=== PATIENT | female | born 1970 | race Caucasian/White ===

== ENCOUNTER 2025-10-15 03:40 | Day surgery (SDC) | payer BC, SELFPAY ==
[2025-09-22 11:30] VITALS: BMI 23.4
--- OUTSIDE RECORDS SUMMARY | 2025-10-15 03:43 | XMS_ITS | Clinical Summary ---
Author Organization [facility] Address Formerly [facility] [place] [address] Care Team Providers Care Fittings Tightener Name Role Phone Rony Fried JOANNA Primary Care Provider + Allergies Active Allergy Reactions Criticality Noted Date Comments Penicillins Hives 08/18/2025 Medications rosuvastatin (CRESTOR) 20 MG tablet Take 1 tablet (20 mg total) by mouth nightly at bedtime. Active Coenzyme Q10 (CO Q 10) 10 MG Cap Active Active Problems Problem Noted Date Diagnosed Date Hemochromatosis 08/05/2025 Encounters Date Type Department Care Team Description 10/06/2025 8:04 AM GLASS INSPECTOR - 10/06/2025 11:59 PM [facility] Hospital Encounter [facility] [place] [address] [address] Lai Beauchamp MD Therapeutic Phlebotomy Discharge Disposition: Home or Self Care (Routine Discharge) 10/06/2025 8:03 AM [facility] Hospital Encounter [facility] [place] [place] [address] Lai Beauchamp MD Discharge Disposition: Home or Self Care (Routine Discharge) 10/06/2025 Orders Only [facility] [place] [address] [address] Lai Beauchamp MD 10/06/2025 Travel 10/06/2025 Orders Only [facility] [place] [address] [address] Lai Beauchamp MD 09/22/2025 7:58 AM GLASS INSPECTOR - 09/22/2025 11:59 PM GLASS INSPECTOR Hospital Encounter [facility] [address] [place] [address] Lai Beauchamp MD Therapeutic Phlebotomy Discharge Disposition: Home or Self Care (Routine Discharge) 09/22/2025 7:57 AM GLASS INSPECTOR Hospital Encounter [facility] [address] [place] [address] Lai Beauchamp MD Discharge Disposition: Home or Self Care (Routine Discharge) 09/22/2025 Travel 09/15/2025 8:04 AM GLASS INSPECTOR - 09/15/2025 11:59 PM GLASS INSPECTOR Hospital Encounter [facility] [address] [place] [address] Lai Beauchamp MD Therapeutic Phlebotomy Discharge Disposition: Home or Self Care (Routine Discharge) 09/15/2025 8:03 AM GLASS INSPECTOR Hospital Encounter [facility] [address] [place] [address] Lai Beauchamp MD Discharge Disposition: Home or Self Care (Routine Discharge) 09/15/2025 Travel 09/14/2025 Orders Only [facility] [place] [address] Lai Beauchamp MD 09/08/2025 8:00 AM GLASS INSPECTOR - 09/08/2025 11:59 PM GLASS INSPECTOR Hospital Encounter [facility] [address] [place] [address] Lai Beauchamp MD Discharge Disposition: Home or Self Care (Routine Discharge) 09/08/2025 7:59 AM GLASS INSPECTOR Hospital Encounter [facility] [address] [place] [address] Lai Beauchamp MD Discharge Disposition: Home or Self Care (Routine Discharge) 09/08/2025 Orders Only [facility] [address] [place] [address] Lai Beauchamp MD 09/08/2025 Travel 08/25/2025 8:14 AM CDT - 08/25/2025 11:59 PM CDT Hospital Encounter [facility] [place] [address] Lai Beauchamp MD Therapeutic Phlebotomy Discharge Disposition: Home or Self Care (Routine Discharge) 08/25/2025 8:13 AM CDT Hospital Encounter [facility] [place] [address] Lai Beauchamp MD Discharge Disposition: Home or Self Care (Routine Discharge) 08/25/2025 Travel 08/18/2025 9:05 AM CDT - 08/18/2025 11:59 PM CDT Hospital Encounter [facility] [place] [address] Lai Beauchamp MD Discharge Disposition: Home or Self Care (Routine Discharge) 08/18/2025 8:30 AM CDT - 08/18/2025 9:04 AM CDT Hospital Encounter [facility] [place] [address] Lai Beauchamp MD Therapeutic Phlebotomy Discharge Disposition: Home or Self Care (Routine Discharge) 08/18/2025 8:20 AM CDT - 08/18/2025 8:29 AM CDT Hospital Encounter [facility] [place] [address] Lai Beauchamp MD Discharge Disposition: Home or Self Care (Routine Discharge) 08/18/2025 Orders Only [facility] [place] [address] [address] Lai Beauchamp MD 08/18/2025 Orders Only [facility] [place] [place] [address] Lai Beauchamp MD 08/18/2025 Travel 08/18/2025 Orders Only [facility] [place] [place] [address] Lai Beauchamp MD 08/05/2025 10:15 AM CDT - 08/05/2025 11:59 PM CDT Hospital Encounter [facility] [place] [address] Lai Beauchamp MD Discharge Disposition: Home or Self Care (Routine Discharge) 08/05/2025 10:13 AM CDT - 08/05/2025 10:14 AM CDT Hospital Encounter [facility] [address] [facility] [address] Lai Beauchamp MD Discharge Disposition: Home or Self Care (Routine Discharge) 08/05/2025 Orders Only [facility] [place] [address] Lai Beauchamp MD 08/05/2025 Travel 07/18/2025 9:55 AM CDT - 07/18/2025 11:59 PM CDT Hospital Encounter [facility] [address] Lai Beauchamp MD Discharge Disposition: Home or Self Care (Routine Discharge) 07/18/2025 Orders Only [facility] [place] [address] Lai Beauchamp MD 07/18/2025 Travel from Last 3 Months Social History Tobacco Use Types Packs/Day Years Used Date Smoking Tobacco: Never Assessed Comments No Sex and Gender Information Value Date Recorded Sex Assigned at Female 01/14/2025 12:15 PM CDT Legal Sex Female 2:22 PM CDT Gender Identity Not on file Sexual Orientation Not on file Last Filed Vital Signs Vital Sign Reading Time Taken Comments Blood Pressure 135/70 10/06/2025 8:44 AM GLASS INSPECTOR Pulse 88 10/06/2025 8:44 AM GLASS INSPECTOR Temperature 36.7 C (98 F) 10/06/2025 8:44 AM GLASS INSPECTOR Respiratory Rate 16 10/06/2025 8:44 AM GLASS INSPECTOR Oxygen Saturation 99% 10/06/2025 8:44 AM GLASS INSPECTOR Inhaled Oxygen Concentration - - Weight 65.3 kg (143 lb 15.4 oz) 10/06/2025 8:44 AM GLASS INSPECTOR Height - - Body Mass Index - - Plan of Treatment Health Maintenance Due Date Last Done Comments Cervical Cancer Screening Pa p Smear (Age 30 to 64) Every 3 Years 1971 Colorectal Cancer Screening Colonoscopy (10 Years) 1971 Annual Physical 1974 Hepatitis B Vaccines (1 of 3 - 19+ 3-dose series) 1990 Cervical Cancer Screening Pa p with HPV Testing (Age 30 to 64) Every 5 Years 2001 Cervical Cancer Screening wi th HPV 2001 Pneumococcal Vaccine: 50+ Years (1 of 1 - PCV) 2021 Zoster Vaccines (1 of 2) 2021 DTaP, Tdap and Td Vaccines ( 2 - Td or Tdap) 07/27/2021 07/27/2011 COVID-19 Vaccine (1 - 2024-2 6 season) 2025 Influenza Adult (#1) 2025 Mammogram Screening 01/19/2027 01/19/2025, 09/24/2020, 12/31/2014 Hepatitis C Completed 08/05/2025 Hepatitis A Vaccines Aged Out No long er eligible based on patient's age to complete this topic Meningococcal B Vaccine Aged Out No l onger eligible based on patient's age to complete this topic Meningococcal Vaccine Aged Out No nilay alex eligible based on patient's age to complete this topic RSV Immunizations Under 20 Months Aged Out No longer eligible b ased on patient's age to complete this topic Procedures Procedure Name Priority Date/Time Associated Diagnosis Comments FERRITIN Routine 10/06/2025 8:07 AM GLASS INSPECTOR Hemochromatosis IRON SAT PANEL (IRON,IBC,%SAT) Routine 10/06/2025 8:07 AM GLASS INSPECTOR Hereditary hemochromatosis HC CBC AUTO W/AUTO DIFF Routine 10/06/2025 8:07 AM GLASS INSPECTOR Hereditary hemochromatosis HC HEMATOCRIT Routine 09/22/2025 8:02 AM GLASS INSPECTOR Hemochromatosis HC HEMATOCRIT Routine 09/15/2025 8:08 AM GLASS INSPECTOR Hemochromatosis IRON SAT PANEL (IRON,IBC,%SAT) Routine 09/08/2025 8:09 AM GLASS INSPECTOR Hemochromatosis FERRITIN Routine 09/08/2025 8:09 AM GLASS INSPECTOR Hemochromatosis CBC W/DIFF AUTOMATED Routine 09/08/2025 8:09 AM GLASS INSPECTOR Hemochromatosis HEMATOCRIT Routine 09/08/2025 8:09 AM GLASS INSPECTOR Hemochromatosis HEMATOCRIT Routine 08/25/2025 8:21 AM CDT Hemochromatosis USE ECHOCARDIOGRAM Routine 08/18/2025 12 :13 PM CDT Hemochromatosis MRI ABD WWO CON Routine 08/18/2025 11:23 AM CDT Hemochromatosis HEMATOCRIT Routine 08/18/2025 9:19 AM CDT Hemochromatosis HC FERRITIN Routine 08/05/2025 10:48 AM CDT Hereditary hemochromatosis HC THYROID STIMULATING HORM Routine 08/05/2025 10:48 AM CDT Lung nodule HC IRON TOTAL Routine 08/05/2025 10:48 AM CDT Lung nodule HC HIV-1 AG W/HIV-1 & HIV-2 AB Routine 08/05/2025 10:48 AM CDT Lung nodule HC HEPATITIS PANEL ACUTE Routine 08/05/2025 10:48 AM CDT Lung nodule HC COMPREHENSIVE METABOL PANEL Routine 08/05/2025 10:48 AM CDT Lung nodule HC CBC AUTO W/AUTO DIFF Routine 08/05/2025 10:48 AM CDT Lung nodule ECG 12-LEAD Routine 08/05/2025 10:26 AM CDT Lung nodule HC HFE GENE ANALYSIS -90 Routine 07/18/2025 10:20 AM CDT Lung nodule MG SCREENING W NIMESH TROY DIGI Routine 01/19/2025 1:53 PM CDT Encounter for screening mammogram for malignant neoplasm of breast from Last 3 Months or Most Recently Relevant to Health Maintenance Results * (ABNORMAL) IRON SATURATION PNL (FE/TIBC/SAT) (10/06/2025 8:07 AM GLASS INSPECTOR) IRON 110 50 - 170 MCG/DL 10/06/2025 9:02 AM GLASS INSPECTOR [facility] IRON BINDING CAPACITY 239(L) 250 - 450 MCG/DL 10/06/2025 9:02 AM GLASS INSPECTOR [facility] IRON SATURATION 46 % 9:02 AM GLASS INSPECTOR [facility] Comment:REFERENCE RANGE NOT ESTABLISHED BLOOD VENOUS BLOOD SPECIMEN / Unknown 10/06/2025 8:07 AM GLASS INSPECTOR Lai Beauchamp MD LABORATORY Final Result [facility] [address] [place] [address], * FERRITIN (10/06/2025 8:07 AM GLASS INSPECTOR) Pathologist [facility] FERRITIN 238.7 8 - 252 NG/ML 10/06/2025 2:53 PM GLASS INSPECTOR [facility] BLOOD VENOUS BLOOD SPECIMEN / Unknown 10/06/2025 8:07 AM GLASS INSPECTOR Lai Beauchamp MD LABORATORY Final Result [facility] [address] [place] [address], * (ABNORMAL) CBC W/DIFF (10/06/2025 8:07 AM GLASS INSPECTOR) WBC 6.26 4.00 - 10.80 x10'3/uL 10/06/2025 8:22 AM GLASS INSPECTOR [facility] RBC 4.66 4.10 - 5.40 x10'6/uL 10/06/2025 8:22 AM [facility] HGB 15.3 12.0 - 16.0 G/DL 10/06/2025 8:22 AM [facility] HCT 45.6 36.0 - 47.0 % 10/06/2025 8:22 AM [facility] MCV 97.9 78.0 - 100.0 FL 10/06/2025 8:22 AM [facility] MCH 32.8(H) 27.0 - 31.0 PG 10/06/2025 8:22 AM [facility] MCHC 33.6 33.0 - 36.0 G/DL 10/06/2025 8:22 AM [facility] RDW 13.2 11.5 - 14.5 % 10/06/2025 8:22 AM [facility] PLT 206 150 - 350 x10'3/uL 10/06/2025 8:22 AM [facility] MPV 10.3 7.4 - 10.4 FL 10/06/2025 8:22 AM [facility] CBC COMMENT NORMAL REFERENCE RANGE NOT ESTABLISHED FOR THE PROPORTIONAL LEUKOCYTE DIFFERENTIAL. 10/06/2025 8:22 AM [facility] NEUTROPHILS % 61.2 % 10/06/2025 8:22 AM [facility] LYMPHOCYTES % 23.8 % 10/06/2025 8:22 AM [facility] MONOCYTES % 11.8 % 10/06/2025 8:22 AM [facility] EOSINOPHILS % 2.1 % 10/06/2025 8:22 AM [facility] BASOPHILS % 0.8 % 10/06/2025 8:22 AM [facility] IMMATURE GRANS % 0.3 % 10/06/20 8:22 AM [facility] NRBC % 0.0 % 10/06/2025 8:22 AM [facility] ABS. NEUTROPHILS 3.83 1.60 - 8.30 x10'3/uL 10/06/2025 8:22 AM GLASS INSPECTOR [facility] ABS. LYMPHOCYTES 1.49 0.80 - 4.70 x10'3/uL 10/06/2025 8:22 AM GLASS INSPECTOR [facility] ABS. MONOCYTES 0.74 0.00 - 1.50 x10'3/uL 10/06/2025 8:22 AM GLASS INSPECTOR [facility] ABS. EOSINOPHILS 0.13 0.00 - 0.40 x10'3/uL 10/06/2025 8:22 AM GLASS INSPECTOR [facility] ABS. BASOPHILS 0.05 0.00 - 0.20 x10'3/uL 10/06/2025 8:22 AM GLASS INSPECTOR [facility] ABS. IMMATURE GRANULOCYTES 0.02 0.00 - 0.03 x10'3/uL 10/06/2025 8:22 AM GLASS INSPECTOR [facility] ABS. NUCLEATED RBC'S 0.00 0.00 - 0.01 x10'3/uL 10/06/2025 8:22 AM GLASS INSPECTOR [facility] BLOOD VENOUS BLOOD SPECIMEN / Unknown 10/06/2025 8:07 AM GLASS INSPECTOR us Lai Beauchamp MD LABORATORY Final Result [place] [id number] [place] [address], * HEMATOCRIT (09/22/2025 8:02 AM GLASS INSPECTOR) Only the most recent of5 resultswithin the time period is included. HCT 46.1 36.0 - 47.0 % 09/22/2025 8:09 AM GLASS INSPECTOR [facility] BLOOD VENOUS BLOOD SPECIMEN / Unknown 09/22/2025 8:02 AM GLASS INSPECTOR us Lai Beauchamp MD LABORATORY Final Result [facility] [address] [place] [id number], * IRON SATURATION PNL (FE/TIBC/SAT) (09/08/2025 8:09 AM GLASS INSPECTOR) Only the most recent of2 resultswithin the time period is included. IRON 76 50 - 170 MCG/DL 09/08/2025 8:53 AM [facility] IRON BINDING CAPACITY 258 250 - 450 MCG/DL 09/08/2025 8:53 AM [facility] IRON SATURATION 29 % 8:53 AM [facility] Comment:REFERENCE RANGE NOT ESTABLISHED 09/08/2025 8:09 AM [facility] Lai Beaucahmp MD LABORATORY Final Result [facility] [address] [place] [address], * (ABNORMAL) CBC W/DIFF AUTOMATED (09/08/2025 8:09 AM GLASS INSPECTOR) Only the most recent of2 resultswithin the time period is included. WBC 5.49 4.00 - 10.80 x10'3/uL 09/08/2025 8:44 AM [facility] RBC 4.69 4.10 - 5.40 x10'6/uL 09/08/2025 8:44 AM [facility] HGB 15.1 12.0 - 16.0 G/DL 09/08/2025 8:44 AM [facility] HCT 44.9 36.0 - 47.0 % 09/08/2025 8:44 AM [facility] MCV 95.7 78.0 - 100.0 FL 09/08/2025 8:44 AM [facility] MCH 32.2(H) 27.0 - 31.0 PG 09/08/2025 8:44 AM [facility] MCHC 33.6 33.0 - 36.0 G/DL 09/08/2025 8:44 AM [facility] RDW 13.7 11.5 - 14.5 % 09/08/2025 8:44 AM [facility] PLT 202 150 - 350 x10'3/uL 09/08/2025 8:44 AM [facility] MPV 10.6(H) 7.4 - 10.4 FL 09/08/2025 8:44 AM [facility] CBC COMMENT NORMAL REFERENCE RANGE NOT ESTABLISHED FOR THE PROPORTIONAL LEUKOCYTE DIFFERENTIAL. 09/08/2025 8:44 AM [facility] NEUTROPHILS % 58.5 % 09/08/2025 8:44 AM [facility] LYMPHOCYTES % 28.2 % 09/08/2025 8:44 AM [facility] MONOCYTES % 9.3 % 09/08/2025 8:44 AM [facility] EOSINOPHILS % 2.6 % 09/08/2025 8:44 AM [facility] BASOPHILS % 0.9 % 09/08/2025 8:44 AM [facility] IMMATURE GRANS % 0.5 % 09/08/20 8:44 AM [facility] NRBC % 0.0 % 09/08/2025 8:44 AM [facility] ABS. NEUTROPHILS 3.21 1.60 - 8.30 x10'3/uL 09/08/2025 8:44 AM [facility] ABS. LYMPHOCYTES 1.55 0.80 - 4.70 x10'3/uL 09/08/2025 8:44 AM [facility] ABS. MONOCYTES 0.51 0.00 - 1.50 x10'3/uL 09/08/2025 8:44 AM [facility] ABS. EOSINOPHILS 0.14 0.00 - 0.40 x10'3/uL 09/08/2025 8:44 AM [facility] ABS. BASOPHILS 0.05 0.00 - 0.20 x10'3/uL 09/08/2025 8:44 AM [facility] ABS. IMMATURE GRANULOCYTES 0.03 0.00 - 0.03 x10'3/uL 09/08/2025 8:44 AM GLASS INSPECTOR [facility] ABS. NUCLEATED RBC'S 0.00 0.00 - 0.01 x10'3/uL 09/08/2025 8:44 AM GLASS INSPECTOR [facility] 09/08/2025 8:09 AM GLASS INSPECTOR us Lai Beauchamp MD LABORATORY Final Result Performing Organization Address City/[facility] Co de Phone Number [facility] [address] [place] [address], [place] [phone] * (ABNORMAL) FERRITIN (09/08/2025 8:09 AM GLASS INSPECTOR) Only the most recent of2 resultswithin the time period is included. FERRITIN 519.9(H) 8 - 252 NG/ML 09/08/2025 9:05 AM GLASS INSPECTOR [facility] 09/08/2025 8:09 AM GLASS INSPECTOR us Lai Beauchamp MD LABORATORY Final Result Performing Organization Address [facility] de Phone Number [facility] [address] [place] [address], [place] [phone] * USE ECHOCARDIOGRAM (08/18/2025 12:13 PM CDT) Anatomical Region Laterality Modality Cardiac Ultrasound 08/18/2025 11:3 5 AM CDT Narrative 08/18/2025 5:49 PM CDT Echocardiography Report Pat.Name: Sally Harrell.ID: [id number] .Date: 08/18/2025 Refer.MD: Hema Exam Time: 11:35:00 AM Study Type:HEMA Height: 64 in Weight: 139 lb BSA: 1.68 m2 Age: 8 1970,55Y Sex: F Sonogrphr: Am Pat. Stat.:Outpatient Reason for Study:Hemochromatosis Procedures: Study performed at [place], [place] and interpreted by [facility]. 2D, M-mode, Doppler, Color Flow ++++++++++++++++++++++++++++++++++++ SUMMARY: ++++++++++++++++++++++++++++++++++++ The left ventricular size is normal. Estimated left ventricular ejection fraction is 55-60%. The right ventricular function is normal. ++++++++++++++++++++++++++++++++++++ FINDINGS: ++++++++++++++++++++++++++++++++++++ LV: The left ventricular size is normal. The left ventricular systolic function is normal. Estimated left ventricular ejection fraction is 55-60%. Left ventricular filling pressure is indeterminate. RV: The right ventricle size is normal. The right ventricular function is normal. LA: Left atrial size is normal. RA: The right atrial size is normal. MATHEUS: No evidence of pericardial effusion. AO: Aorta is normal. SVn: Inferior vena cava is normal. AV: No evidence of aortic valve stenosis. No evidence of aortic regurgitation. The aortic valve not well visualized. MV: The mitral valve is structurally normal. There is trace mitral regurgitation. PV: Pulmonic valve not well visualized. TV: The tricuspid valve appears structurally normal. There is trace tricuspid regurgitation. <Electronic Signature> 08/18/2025 05:49 PM Carey Vallejo M.D Procedure Note Mary Kate Apodaca, - 08/18/2025 Echocardiography Report Pat.Name: Sally Harrell jake Gil.ID: [id number] .Date: 08/18/2025 Refer.MD: Hema, Exam Time: 11:35:00 AM Study Type:OUTREACH Height: 64 in Weight: 139 lb BSA: 1.68 m2 Age: 8 1970,55Y Sex: F Sonogrphr: Am Pat. Stat.:Outpatient Reason for Study:Hemochromatosis Procedures: Study performed at [place], [place] and interpreted by [facility]. 2D, M-mode, Doppler, Color Flow ++++++++++++++++++++++++++++++++++++ SUMMARY: ++++++++++++++++++++++++++++++++++++ The left ventricular size is normal. Estimated left ventricular ejection fraction is 55-60%. The right ventricular function is normal. ++++++++++++++++++++++++++++++++++++ FINDINGS: ++++++++++++++++++++++++++++++++++++ LV: The left ventricular size is normal. The left ventricular systolic function is normal. Estimated left ventricular ejection fraction is 55-60%. Left ventricular filling pressure is indeterminate. RV: The right ventricle size is normal. The right ventricular function is normal. LA: Left atrial size is normal. RA: The right atrial size is normal. MATHEUS: No evidence of pericardial effusion. AO: Aorta is normal. SVn: Inferior vena cava is normal. AV: No evidence of aortic valve stenosis. No evidence of aortic regurgitation. The aortic valve not well visualized. MV: The mitral valve is structurally normal. There is trace mitral regurgitation. PV: Pulmonic valve not well visualized. TV: The tricuspid valve appears structurally normal. There is trace tricuspid regurgitation. <Electronic Signature> 08/18/2025 05:49 PM Carey Vallejo M.D us Lai Beauchamp MD [place] Final Result * MRI ABD WWO CON (08/18/2025 11:23 AM CDT) Anatomical Region Laterality Modality Abdomen Magnetic Resonan ce 08/18/2025 11:4 1 AM CDT Impressions 08/18/2025 4:27 PM CDT IMPRESSION: 1. Findings consistent with hemachromatosis in the appropriate clinical context. 2. Multifocal hepatic cysts or biliary hamartomas. 3. Indeterminate 12 mm T2 hyperintense lesion at the diaphragmatic hiatus adjacent to the aorta. This is nonspecific but favored to represent a dilated venous structure. Attention on follow-up imaging is recommended. Dictated By: Bettie Murphy DO on 08/18/2025 11:41 AM The attending radiologist has reviewed the image(s) and agrees with the content of this report. Referred By: LAI BEAUCHAMP Interpreted By: Bettie Murphy DO, 08/18/2025 11:41 AM Narrative 08/18/2025 4:[address] [place] [address] [place] [address] EXAMINATION: MRI abdomen with and without contrast INDICATION: Hemochromatosis COMPARISON: None TECHNIQUE: Multiplanar, multi-sequence MRI examination of the abdomen was performed. Contrast agent: 12 mL of Dotarem FINDINGS: Lung Bases: Right middle lobe pulmonary nodule. This was previously seen on CT chest from about one month ago and follow-up in 6 months from that time frame is still recommended. Abdomen: Liver: There are multifocal scattered T2 hyperintense lesions throughout the hepatic parenchyma which do not appear to have suspicious postcontrast enhancement in the larger lesions. Many of the smaller lesions are too small to technically characterize. These findings are consistent with multifocal hepatic cysts or biliary hamartomas. There is decreased signal intensity of the hepatic parenchyma on in phase imaging in relation to phase imaging. Splenic signal intensity is unremarkable. These findings are consistent with hemachromatosis in the appropriate clinical context. Gallbladder and Biliary System: Gallbladder is unremarkable. No intra or extrahepatic biliary ductal dilatation Spleen: Unremarkable Pancreas: Pancreas demonstrates normal intrinsic T1 hyperintensity. No pancreatic duct dilatation. No focal lesions. Adrenal Glands: Unremarkable Kidneys: Unremarkable Bowel: No thickening or dilatation of the visualized bowel. Lymph Nodes: No abdominal lymphadenopathy Vasculature: Patent Upper Pelvis: Unremarkable Other: No free fluid. There is a indeterminate 12 mm T2 hyperintense lesion which appears to be at the diaphragmatic hiatus trochlea adjacent to the aorta (series 4 image 70, series 3 image 16). This has postcontrast enhancement on the 3 minute delayed images as well as the subsequent delayed images after this time. This is nonspecific but favored to represent a dilated venous structure. Attention on follow-up imaging is recommended. Body Wall: Unremarkable Bones: No aggressive osseous lesions. Procedure Note Mart Moore MD - 08/18/2025 [place] [id number] [facility] [address] [facility] [address] [place] [address] EXAMINATION: MRI abdomen with and without contrast INDICATION: Hemochromatosis COMPARISON: None TECHNIQUE: Multiplanar, multi-sequence MRI examination of the abdomen wasperformed. Contrast agent: 12 mL of Dotarem FINDINGS: Lung Bases: Right middle lobe pulmonary nodule. This was previously seenon CT chest from about one month ago and follow-up in 6 months from thattime frame is still recommended. Abdomen: Liver: There are multifocal scattered T2 hyperintense lesions throughoutthe hepatic parenchyma which do not appear to have suspicious postcontrastenhancement in the larger lesions. Many of the smaller lesions are toosmall to technically characterize. These findings are consistent withmultifocal hepatic cysts or biliary hamartomas. There is decreased signalintensity of the hepatic parenchyma on in phase imaging in relation tophase imaging. Splenic signal intensity is unremarkable. These findingsare consistent with hemachromatosis in the appropriate clinical context. Gallbladder and Biliary System: Gallbladder is unremarkable. No intra orextrahepatic biliary ductal dilatation Spleen: Unremarkable Pancreas: Pancreas demonstrates normal intrinsic T1 hyperintensity. Nopancreatic duct dilatation. No focal lesions. Adrenal Glands: Unremarkable Kidneys: Unremarkable Bowel: No thickening or dilatation of the visualized bowel. Lymph Nodes: No abdominal lymphadenopathy Vasculature: Patent Upper Pelvis: Unremarkable Other: No free fluid. There is a indeterminate 12 mm T2 hyperintenselesion which appears to be at the diaphragmatic hiatus trochlea adjacentto the aorta (series 4 image 70, series 3 image 16). This haspostcontrast enhancement on the 3 minute delayed images as well as thesubsequent delayed images after this time. This is nonspecific butfavored to represent a dilated venous structure. Attention on follow-upimaging is recommended. Body Wall: Unremarkable Bones: No aggressive osseous lesions. IMPRESSION: 1. Findings consistent with hemachromatosis in the appropriate clinicalcontext. 2. Multifocal hepatic cysts or biliary hamartomas. 3. Indeterminate 12 mm T2 hyperintense lesion at the diaphragmatic hiatusadjacent to the aorta. This is nonspecific but favored to represent adilated venous structure. Attention on follow-up imaging is recommended. Dictated By: Bettie Murphy DO on 08/18/2025 11:41 AM The attending radiologist has reviewed the image(s) and agrees with thecontent of this report. Referred By: LAI BEAUCHAMP Interpreted By: Bettie Murphy DO, 08/18/2025 11:41 AM Lai Beauchamp MD MRI Final Result * HIV 1 ANTIGEN(S), WITH HIV-1 AND HIV-2 ANTIBODIES (08/05/2025 10:48 AM CDT) HIV 1/2 AB+ HIV1 P24 AG NON-REACTI VE NON-REACTI VE 08/05/2025 7:37 PM CDT [facility] Comment:HIV 1 p24 Ag and HIV 1/ HIV 2 Ab not detected. 08/05/2025 10:4 8 AM CDT Lai Beauchamp MD LABORATORY Final Result [facility] [address] [place] [address], [id number] * COMPREHENSIVE METABOLIC PANEL (08/05/2025 10:48 AM CDT) SODIUM S/P/B 141 136 - 145 MMOL/L 08/05/2025 11:23 AM CDT [facility] POTASSIUM S/P/B 4.2 3.5 - 5.1 MMOL/L 08/05/2025 11:23 AM CDT [facility] CHLORIDE S/P/B 103 98 - 107 MMOL/L 08/05/2025 11:[address] [facility] CO2 30.9 21.0 - 32.0 MMOL/L 08/05/2025 11:[address] [facility] GLUCOSE 90 70 - 99 MG/DL 08/05/2025 11:[address] [facility] Comment: FASTING GLUCOSE 100 TO 125 MG/DL IS CONSISTENT WITH IMPAIRED FASTING GLUCOSE. FASTING GLUCOSE >125 MG/DL IS CONSISTENT WITH DIABETES. RANDOM GLUCOSE >200 MG/DL WITH HYPERGLYCEMIC SYMPTOMS IS CONSISTENT WITH DIABETES. PER ADA GUIDELINES BUN 11 6 - 24 MG/DL 08/05/2025 11:[address] [facility] CREATININE S/P/B 0.68 0.55 - 1.02 MG/DL 08/05/2025 11:[address] [facility] CALCIUM S/P/B 9.6 8.4 - 10.5 MG/DL 08/05/2025 11:[address] [facility] BILIRUBIN TOTAL S/P/B 0.3 0.2 - 1.0 MG/DL 08/05/2025 11:[address] [facility] Comment: THIS ASSAY IS NOT RECOMMENDED FOR PATIENTS UNDERGOING TREATMENT WITH ELTROMBOPAG DUE TO THE POTENTIAL FOR FALSELY ELEVATED RESULTS. ALKALINE PHOSPHATASE S/P/B 82 41 - 108 U/L 08/05/2025 11:[address] [facility] AST 18 15 - 37 U/L 08/05/2025 11:[address] [facility] ALT 22 14 - 59 U/L 08/05/2025 11:[address] [facility] TOTAL PROTEIN S/P/B 7.4 6.4 - 8.2 G/DL 08/05/2025 11:[address] [facility] ALBUMIN S/P/B 4.0 3.4 - 5.0 G/DL 08/05/2025 11:[address] [facility] ANION GAP 7.1 5.0 - 15.0 MMOL/L 08/05/2025 11:[address] [facility] OSMOLALITY (CALC) 291 MOSM/KG 025 11:23 AM CDT [facility] Comment:REFERENCE RANGE NOT ESTABLISHED GFR ESTIMATE >90 >89 ML/MIN/1. 73 M2 08/05/2025 11:23 AM CDT [facility] GFR NOTES GFR REFERENCE S: 08/05/2025 11:23 AM CDT [facility] Comment: THE ESTIMATED GFR IS CALCULATED USING THE 2020 CKD-EPI EQUATION. THE FOLLOWING CATEGORIES FOR GRADING RENAL FUNCTION ARE RECOMMENDED BY THE INTERNATIONAL SOCIETY OF NEPHROLOGY (KDIGO 2012 CLINICAL PRACTICE GUIDELINE). G1,NORMAL OR HIGH: >89 ml/min/1.73 m2 G2,MILDLY DECREASED: 60-89 ml/min/1.73 m2 G3A,MILDLY TO MODERATELY DECREASED: 45-59 ml/min/1.73 m2 G3B,MODERATELY TO SEVERELY DECREASED: 30-44 ml/min/1.73 m2 G4,SEVERELY DECREASED: 15-29 ml/min/1.73 m2 G5,KIDNEY FAILURE: <15 ml/min/1.73 m2 08/05/2025 10:4 8 AM CDT us Lai Beauchamp MD LABORATORY Final Result [facility] [address] [id number], * HEPATITIS PANEL,ACUTE (08/05/2025 10:48 AM CDT) HEPATITIS B SURFACE AG NON-REACT IDALIA NON-REACT IDALIA 08/05/2025 7:39 PM CDT [facility] Comment:HBsAg NOT DETECTED. HEP B CORE IGM NON-REACT IDALIA NON-REACT IDALIA 08/05/2025 7:39 PM CDT [facility] Comment: IgM ANTI HBc NOT DETECTED. DOES NOT EXCLUDE THE POSSIBILITY OF EXPOSURE TO OR INFECTION WITH HBV. NO RETEST REQUIRED. HIGH DOSES OF BIOTIN MAY INTERFERE WITH THIS TEST RESULT. CORRELATION TO CLINICAL HISTORY AND PRESENTATION RECOMMENDED. HAV IGM NON-REACT IDALIA NON-REACT IDALIA 08/05/2025 7:39 PM CDT [facility] Comment: IgM ANTI HAV NOT DETECTED. DOES NOT EXCLUDE THE POSSIBILITY OF EXPOSURE TO OR INFECTION WITH HAV. LEVELS OF IgM ANTI HAV MAY BE BELOW THE CUTOFF IN EARLY INFECTION. HEPATITIS C AB NON-REACT IDALIA NON-REACT IDALIA 08/05/2025 7:39 PM CDT [facility] Comment: ANTIBODIES TO HCV NOT DETECTED. DOES NOT EXCLUDE THE POSSIBILITY OF EXPOSURE TO HCV. 08/05/2025 10:4 8 AM CDT Lai Beauchamp MD LABORATORY Final Result Performing Organization Address City/[facility]/ZIP Co de Phone Number [facility] [address] [place] [address], [place] [phone] * THYROID STIM HORMONE TSH (08/05/2025 10:48 AM CDT) TSH 0.620 0.358 - 3.740 uIU/ML 08/05/2025 11:23 AM CDT [facility] Comment: ASSAY PERFORMED BY CHEMILUMINESCENT IMMUNOASSAY METHODOLOGY USING SIEMENS DIMENSION REAGENT. PATIENT RESULTS DETERMINED BY ASSAYS FROM DIFFERENT MANUFACTURERS AND/OR BY DIFFERENT METHODS MAY NOT BE COMPARABLE. 08/05/2025 10:4 8 AM CDT Lai Beauchamp MD LABORATORY Final Result Performing Organization Address [facility] Co de Phone Number [facility] [address] [place] [id number], * ECG 12 lead (08/05/2025 10:26 AM CDT) 08/05/2025 10:2 6 AM CDT Narrative 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 * HEMOCHROMATOSIS DNA (07/18/2025 10:20 AM CDT) [facility] HEMOCHROMATOSIS DNA REPORT 07/30 3:13 PM CDT [employer] [facility]PEZ Comment: RESULT: POSITIVE FOR TWO COPIES OF THE HFE GENE PATHOGENIC VARIANT: C282Y/C282Y (HOMOZYGOTE) Interpretation: Two copies of the C282Y pathogenic variant in the HFE gene were detected. This patient is negative for the H63D pathogenic variant. Approximately 60% to 90% of individuals with a biochemical diagnosis of hereditary hemochromatosis (HH) have this genotype. Therefore, this result is consistent with a diagnosis of HH in an individual with clinical evidence of HH. However, this genotype does not predict a diagnosis of HH in an asymptomatic individual, as not all individuals with this genotype will develop symptoms or clinical evidence of this disorder. Disease diagnosis can only be made by demonstration of elevated iron stores. Consider genetic counseling and DNA testing for at-risk family members. Laboratory results and submitted clinical information reviewed by Bee Polanco, Ph.D., ANYA. DETAILED ASSAY INFORMATION: Hereditary hemochromatosis (HH) is an autosomal recessive disorder of iron metabolism that can result in iron overload and potential organ failure. It is one of the most common genetic disorders in individuals of - ancestry, with an estimated carrier frequency of 10%. HH is caused by pathogenic variants in the HFE gene. Most individuals with HH (60-90%) are homozygous for the C282Y pathogenic variant. A smaller percentage of affected individuals are either compound heterozygous for the C282Y and H63D pathogenic variants (3%-8%), or homozygous for the H63D pathogenic variant (approximately 1%). METHODOLOGY: This assay detects two pathogenic variants in the HFE gene, C282Y (NM 522032.2: c.845G>A, p.Qgx534Ogh) and H63D (NM 383097.2: c.187C>G, p.Vqd43Wxp), that are commonly associated with HH. These variants are detected by multiplex-polymerase chain reaction (PCR) amplification, followed by restriction enzyme digestion and capillary electrophoresis. LIMITATIONS: This assay does not detect other pathogenic variants in the HFE gene that may be associated with HH. Although rare, false positive or false negative results may occur. All results should be interpreted in the context of clinical findings, relevant history, and other laboratory data. Health care providers, please contact your local [facility] genetic counselor or call [phone] ( ) for assistance with the interpretation of these results. This test was developed and its analytical performance characteristics have been determined by [facility]. It has not been cleared or approved by FDA. This assay has been validated pursuant to the CLIA regulations and is used for clinical purposes. For more information, please refer to http://[email or web address]/hemochro matosis. (This link is being provided for informational/educational purposes only.) A portion of the testing was performed at [facility] Reviewed and signed by Laboratory results and submitted clinical information reviewed by Bee Polanco, Ph.Corey., ANYA, Signed on 07/30/2025 at 12:46 Test performed by [facility] [address] [place] [address] Guzzler Builder: Tanja Bennett MD,PHD,CASSI Test Reported by Maria GMaria D, [address] [place], [address] [place], [place] Duran Pena M.D., Ph.D., Director of Laboratories , [place] [id number] 07/18/2025 10:2 0 AM CDT Lai Beauchamp MD LABORATORY Final Result [facility] [address] [place], [place] , [place] [phone] * MG SCREENING W NIMSEH TROY DIGI (01/19/2025 1:53 PM CDT) Anatomical Region Laterality Modality Breast Bilateral Mammography 01/20/2025 10:4 7 AM CDT Impressions 01/20/2025 10:48 AM CDT IMPRESSION: Moderately dense breasts. No mammographic evidence of malignancy. Recommendation: 1: Routine Screening Bilateral in 1 Year Assessment: ACR BI-RADS 2 - BENIGN FINDING(S) Ordered By: RONY FRIED Interpreted By: Kiel Purvis MD, 01/20/2025 10:47 AM Narrative 01/20/2025 10:48 AM CDT [address] [place] [address] Examination: Digital screening mammogram with CAD. Clinical history: Asymptomatic patient presents for routine screening. New baseline. Comparison: None. Prior studies are outdated. Technique: Bilateral digital mammograms. The exam was interpreted with the use of a computer-aided detection (CAD) system. Additional 3-D tomosynthesis images were acquired. Tissue density: The breasts are heterogeneously dense which may obscure small masses. Findings: The breast tissue is heterogeneously dense. The dense tissue may obscure some lesions mammographically. Benign-appearing calcification and benign-appearing intramammary lymph nodes noted. No suspicious mass, microcalcification or area of architectural distortion can be identified. From a mammographic standpoint, routine followup in one year would seem adequate. 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
--- OUTSIDE RECORDS SUMMARY | 2025-10-15 03:43 | XMS_ITS | Clinical Summary ---
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 Active triamcinolone (KENALOG) 0.1 % Cream Apply 2 times daily. Apply thin film to affected area(s) twice daily until healed. Active SUMAtriptan (IMITREX) 100 MG Tablet Take 100 mg by mouth daily as needed for Migraine. Use as directed. May repeat dose in 2 hours if headache recurs. Active dicyclomine (BENTYL) 20 MG Tablet Take 20 mg by mouth every 6 hours as needed. Active Active Problems Problem Noted Date Diagnosed Date Nodule of right lung 11/27/2017 Tobacco use disorder 11/27/2017 Centrilobular emphysema 11/27/2017 Pulmonary hypertension 11/27/2017 Irritable bowel syndrome without diarrhea 2017 Gastroesophageal reflux disease 03/21/2017 Family History Medical History Relation Name Comments Chronic Obstructive Pulmonary Disease Father Other-comment Father arterioscleros is Cancer Maternal Grandfather colon Colon Cancer Maternal Grandfather Heart Disease Maternal Grandfather Chronic Obstructive Pulmonary Disease Mother Hyperthyroidism Paternal Aunt Congestive Heart Failure Paternal Grandmother Relation Name Status Comments Father Alive Maternal Grandfather Mother Alive Paternal Aunt Paternal Grandmother Social History Tobacco Use Types Packs/Day Years Used Date Smoking Tobacco: Every Day Cigarettes 1 32 Smokeless Tobacco: Never Tobacco Cessation:Ready to Q uit: Yes; Counseling Given: Yes Alcohol Use Standard Drinks/Week Comments No 0 (1 standard drink = 0.6 oz pur e alcohol) Comments No Sex and Gender Information Value Date Recorded Sex Assigned at Not on file Legal Sex Female 12:06 AM CDT Gender Identity Not on file Sexual Orientation Not on file Last Filed Vital Signs Vital Sign Reading Time Taken Comments Blood Pressure 132/74 08/13/2019 9:30 AM CDT Pulse 66 08/13/2019 9:30 AM CDT Temperature 37 C (98.6 F) 08/13/2019 9:30 AM CDT Respiratory Rate 12 08/13/2019 9:30 AM CDT Oxygen Saturation 99% 08/13/2019 9:30 AM CDT Inhaled Oxygen Concentration - - Weight 68.9 kg (152 lb) 08/13/2019 7:55 AM CDT Height 162.6 cm (5' 4) 08/13/2019 7:55 AM CDT Body Mass Index 26.09 08/13/2019 7:55 AM CDT Plan of Treatment Health Maintenance Due Date Last Done Comments Hepatitis C Virus (HCV) Screening 1970 TdaP Immunization 1970 Hepatitis B Immunization (1 of 3 - 19+ 3-dose series) 1990 Pneumococcal Immunization (5 0+ years) (1 of 2 - PCV) 1990 Cologuard 2016 Immunochemical Fecal Occult Blood 2016 Respiratory Syncytial Virus (RSV) Immunization (Adult) (1 - Risk 50-74 years 1-dose series) 2021 Zoster Immunization (1 of 2) 2021 Colonoscopy 10/08/2022 10/08/2017 Colorectal Cancer Screening 10/08/2022 Influenza Immunization (#1) 2025 SARS-COV-2 Immunization ( - season) 2025 Discussion re Starting/Frequ ency of Mammograms Discontinued 09/24/2020 Mammogram Discontinued 09/24/2020 Human Papillomavirus (HPV) Immunization (No Doses Required) Completed Meningococcal Immunization (ACWY) Aged Out No longer eligible based on patient's age to complete this topic Rotavirus Immunization Aged Out No lo nger eligible based on patient's age to complete this topic Procedures Procedure Name Priority Date/Time Associated Diagnosis Comments JENNIFER SCREENING BILATERAL DIGITAL W CAD W NIMESH Routine 09/24/2020 3:28 PM 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 TURNING 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 Encounter for screening mammogram for malignant neoplasm of breast Menopause from Last 3 Months or Most Recently Relevant to Health Maintenance Results * JENNIFER SCREENING BILATERAL DIGITAL W CAD W NIMESH (09/24/2020 3:28 PM RIM TURNING FINISHER) Anatomical Region Laterality Modality breast Bilateral Mammography 09/24/2020 2:59 PM RIM TURNING FINISHER Narrative 09/29/2020 8:10 AM RIM TURNING FINISHER - JENNIFER SCREENING BILATERAL DIGITAL W CAD W NIMESH BILATERAL DIGITAL SCREENING MAMMOGRAM 3D/2D WITH CAD WITH MEDIOLATERAL OBLIQUE CRANIOCAUDAL: 09/24/2020 The study was acquired using digital technology and interpreted from soft copy. Current study was also evaluated with ICAD version 7.2. CLINICAL: Routine screening. Patient has no complaints. No personal history of cancer. No family history of breast cancer. COMPARISONS: Comparison is made to exams dated: 08/17/2016 and 12/31/2014 [facility]. BREAST TISSUE:The tissue of both breasts is heterogeneously dense. This may lower the sensitivity of mammography. FINDINGS: No significant masses, calcifications, or other findings are seen in either breast. There has been no significant interval change. IMPRESSION: BI-RAD 1 NEGATIVE There is no mammographic evidence of malignancy. A 1 year screening mammogram is recommended. The patient has been or will be contacted. The patient will be entered into a reminder system with a target due date of 1 year for her next screening exam. Electronically signed by: Rosa M corrales/simon:09/28/2020 20:28:01 Dock Clerk: Yesenia PHILLIPS)(M), [facility] letter sent: Normal Exam Reading location: [facility] BI-RADS: 1 Negative Procedure Note Rosa M Abebe MD - 09/29/2020 - JENNIFER SCREENING BILATERAL DIGITAL W CAD W NIMESH BILATERAL DIGITAL SCREENING MAMMOGRAM 3D/2D WITH CAD WITH MEDIOLATERAL OBLIQUE CRANIOCAUDAL: 09/24/2020 The study was acquired using digital technology and interpreted from soft copy. Current study was also evaluated with ICAD version 7.2. CLINICAL: Routine screening. Patient has no complaints. No personal history of cancer. No family history of breast cancer. COMPARISONS: Comparison is made to exams dated: 08/17/2016 and 12/31/2014 [facility]. BREAST TISSUE:The tissue of both breasts is heterogeneously dense. This may lower the sensitivity of mammography. FINDINGS: No significant masses, calcifications, or other findings are seen in either breast. There has been no significant interval change. IMPRESSION: BI-RAD 1 NEGATIVE There is no mammographic evidence of malignancy. A 1 year screening mammogram is recommended. The patient has been or will be contacted. The patient will be entered into a reminder system with a target due date of 1 year for her next screening exam. Electronically signed by: Rosa M corrales/simon:09/28/2020 20:28:01 Dock Clerk: Yesenia VASQUEZ(R)(M), [facility] letter sent: Normal Exam Reading location: [facility] BI-RADS: 1 Negative Gregg De La Fuente DO [facility] MAMMO ORDERABLES Final Result from Last 3 Months or Most Recently Relevant to Health Maintenance Insurance [employer] Care Teams Abrading Machine Tender Relationship Specialty Start Date End Date Ben Coker MD [address], [place] [phone] PCP - General Pediatrics 02/08/17
[2025-10-15 11:20] VITALS: BP 134/70; PULSE 73; RESP 18; TEMP 36.7; O2SAT 100
[2025-10-15] MEDS: LACTATED RINGERS 1,000 ML 150 ML IV CONT (11:27)
--- NOTE | 2025-10-15 12:02 | WPDANESEPPF ---
Anes - Initial Pre Proc Eval Procedure: Operation Date: 10/15/25 13:00 Proposed Procedures p EGD & Screening Colonoscopy - Chalo Casillas MD Date/Time: 10/15/25 12:02 Surgeon: Chalo Casillas MD Pre Op Diagnosis: Screening, GERD Patient Data Age: 55 Gender: F Height: 1.63 m Weight: 63.1 kg Last Vital Signs Temp 98.1 F 10/15/25 11:20 Pulse 73 10/15/25 11:20 Resp 18 10/15/25 11:20 BP 134/70 10/15/25 11:20 Pulse Ox 100 10/15/25 11:20 O2 Del Method Room Air 10/15/25 11:20 Allergies Allergy/AdvReac Type Severity Reaction Status Date / Time Penicillins Allergy Intermediate Hives Verified 10/15/25 11:18 Home Medications ?Medication ?Instructions ?Recorded ?Confirmed ?Type rosuvastatin 5 mg tablet 5 mg PO DAILY 09/22/25 09/22/25 History Results Review: All pre-operative results and documents have been reviewed as part of the pre-operative evaluation. [facility] Social History Social History Smoking packs per day: 1 Smoking cigarettes per day: 20.0 Years smoked: 41 Smoking pack-years: 41.00 Smoking status: Current every day smoker Tobacco type: cigarettes Alcohol intake: never Substance use: never Substance use type: does not use Living arrangements: with family Spiritual care concerns: No Anes - Eval Final PreProcedure Day of Procedure 10/15/25 12:02 Patient weight: normal Heart: regular rate and rhythm Lungs: clear to auscultation Neurological: alert and oriented Last oral intake: >/= 8 hours Emergent: no Anesthetic plan: proceed Results Review: All pre-operative results and documents have been reviewed as part of the pre-operative evaluation. Informed Consent: The patient's anesthetic plan and its attendant risks and benefits were discussed with the patient/family/POA. Questions were solicited and answers provided to the satisfaction of the patient/family/POA.
--- NOTE | 2025-10-15 12:48 | PM.HPGS ---
History of Present Illness History of Present Illness Consent: Risks, benefits, and alternatives have been discussed and questions answered. Patient agrees to proceed with procedure. Chief complaint: Screening, GERD Narrative: Sally Harrell is a 55 year old female with hemochromatosis, recent abdominal pain, last colonoscopy about 10 year ago. Review of Systems Review of Systems: All systems reviewed & are unremarkable except as noted in HPI and below PMFSH Past Medical History Medical History (Updated 10/15/25 @ 12:50 by Chalo Casillas MD) Colon cancer screening Abdominal pain Social History Social History Smoking packs per day: 1 Smoking cigarettes per day: 20.0 Years smoked: 41 Smoking pack-years: 41.00 Smoking status: Current every day smoker Tobacco type: cigarettes Alcohol intake: never Substance use: never Substance use type: does not use Living arrangements: with family Spiritual care concerns: No Meds Home Medications and Allergies Home Medications ?Medication ?Instructions ?Recorded ?Confirmed ?Type rosuvastatin 5 mg tablet 5 mg PO DAILY 09/22/25 09/22/25 History Allergies Allergy/AdvReac Type Severity Reaction Status Date / Time Penicillins Allergy Intermediate Hives Verified 10/15/25 11:18 Vital Signs Vital Signs - 24 hr 10/15/25 11:20 Temperature 98.1 F Pulse Rate 73 Respiratory Rate 18 Blood Pressure 134/70 Pulse Oximetry 100 Oxygen Delivery Room Air Exam Const: General: comfortable and no acute distress HENMT: Face/Nose/Sinus: Normal nares present Eyes: General: appearance normal, both eyes and all related structures Neck: Neck: no JVD Resp: Auscultation: clear to auscultation bilaterally Cardio: Rate: regular rate Rhythm: regular rhythm GI: Inspection: non-distended GI Palp: Yes Soft to palpation Skin: General skin exam: normal color Extrem: General: normal to inspection Psych: Mental Status: mental status grossly normal Assessment and Plan Assessment and plan (1) Abdominal pain: Code(s): R10.9 - Unspecified abdominal pain Status: Acute Assessment and Plan: egd (2) Colon cancer screening: Code(s): Z12.11 - Encounter for screening for malignant neoplasm of colon Status: Acute Assessment and Plan: colonoscopy
--- NOTE | 2025-10-15 12:52 | S_PTH ---
PATIENT: Sally Harrell LOC: [facility]#:[id number] AGE/SX: 55/F ROOM: RE10/15/[address]: Chalo Casillas MD : 1970 BED: DIS: 10/15/2025 SPEC #: [id number] RECD: 10/15/25 13:37 STATUS: SHERLY RECaroline #: [id number] CHRIS: 10/15/25 12:[address]: Chalo Casillas DEPT: [facility] Surgical RECD BY: Marah Lowery ENTERED: 10/15/25 13:37 SP TYPE: Surgical OTHR DR: Tamy King, ENVIRONMENTAL CONFLICT MANAGER Tissues: A - Gastric Biopsy Procedures: Hematoxylin and Eosin Stain Gross and Microscopic Level 4
--- NOTE | 2025-10-15 12:53 | SUR.OPER ---
EGD: [id number] COLON: Start 1259
[2025-10-15 13:04] VITALS: BP 150/84; PULSE 84; RESP 18; O2SAT 100
[2025-10-15 13:14] VITALS: BP 137/82; PULSE 85; RESP 19; O2SAT 99
[2025-10-15 13:24] VITALS: BP 151/75; PULSE 72; RESP 20; O2SAT 100
== END 2025-10-15 13:36 | disposition home or self-care (01) ==
PROVIDERS: PCP Nurse Practitioner Family; Referring Provider Nurse Practitioner Family; Visit Provider Internal Medicine Gastroenterology
PROC: 0DJ08ZZ Inspection of Upper Intestinal Tract, Via Natural or Artificial Opening Endoscopic (ICD-10-PCS; CPT 45378; principal; 2025-10-15 13:00)
DX: Z12.11 Encounter for screening for malignant neoplasm of colon (principal); K64.8 Other hemorrhoids; K21.9 Gastro-esophageal reflux disease without esophagitis; E83.119 Hemochromatosis, unspecified; F17.210 Nicotine dependence, cigarettes, uncomplicated
CPT/HCPCS: 43239; 45378; 88305; J2704; J7120